=== PATIENT | female | born 1990 | race American Indian/Alaskan Native ===

== ENCOUNTER 2017-01-24 15:07 | Emergency (ER) | payer MEDICAID, OTHER ==
[2017-01-24 15:25] VITALS: BP 103/58
== END 2017-01-24 18:54 | disposition left against medical advice (07) ==
LOC: ED 15:07
DX: O9A.212 Injury, poisoning and certain other consequences of external causes complicating pregnancy, second trimester (principal); S60.571A Other superficial bite of hand of right hand, initial encounter; Z3A.22 22 weeks gestation of pregnancy; Z53.21 Procedure and treatment not carried out due to patient leaving prior to being seen by health care provider; W54.0XXA Bitten by dog, initial encounter; Y93.89 Activity, other specified; Y99.9 Unspecified external cause status; Y92.89 Other specified places as the place of occurrence of the external cause

== ENCOUNTER 2017-04-22 20:59 | Outpatient (CLI) | payer MEDICAID ==
[2017-04-22] MEDS ORDERED: LACTATED RINGERS 1,000 ML ONE (21:14)
[2017-04-22 21:18] VITALS: BP 108/69
[2017-04-22] MEDS ORDERED: ZOFRAN IV ONE (22:00)
[2017-04-22] MEDS ORDERED: LACTATED RINGERS 1,000 ML IV ONE (22:00)
[2017-04-22 22:16] LABS: Bilirubin,Urine NEG (Negative); Blood,Urine NEG (Negative); Ketones,Urine 80 mg/dL (Negative); Leukocyte Esterase,Urine NEG (Negative); Mucus,Urine FEW /HPF; Nitrite,Urine NEG (Negative); Protein,Urine <15 mg/dL mg/dL (Negative); Urobilinogen,Urine < 2.0 mg/dL (<2.0)
[2017-04-22 22:26] LABS: Basophils % (Auto) 0.5 % (0.0-1.8); Hematocrit 33.3 % (30.3-42.9); Hemoglobin 11.2 gm/dl (10.1-14.3); Mean Corpuscular HGB Conc 34 % (30-34); Mean Corpuscular Hemoglobin 31 pg (28-32); Mean Corpuscular Volume 91 fl (79-97); Platelet Count 205 K/mm3 (140-440); Red Blood Count 3.66 M/mm3 (3.65-5.03); White Blood Count 12.8 K/mm3 (4.5-11.0)
[2017-04-22 22:43] LABS: Alanine Aminotransferase 18 units/L (7-56); Albumin 3.4 g/dL (3.9-5); Albumin/Globulin Ratio 1.2 %; Alkaline Phosphatase 138 units/L (35-129); Anion Gap 19 mmol/L; Blood Urea Nitrogen 4 mg/dL (7-17); Calcium 8.7 mg/dL (8.4-10.2); Carbon Dioxide 20 mmol/L (22-30); Chloride 104.6 mmol/L (98-107); Glucose 63 mg/dL (65-100); Potassium 3.8 mmol/L (3.6-5.0); Sodium 140 mmol/L (137-145); Total Protein 6.2 g/dL (6.3-8.2); Uric Acid 3.1 mg/dL (3.5-7.6)
== END 2017-04-22 22:57 | disposition home or self-care (01) ==
LOC: TRG 20:59
PROVIDERS: ATTEND Obstetrics & Gynecology
DX: O47.03 False labor before 37 completed weeks of gestation, third trimester (principal); Z87.891 Personal history of nicotine dependence; Z3A.35 35 weeks gestation of pregnancy
CPT/HCPCS: 36415; 59025; 80053; 81001; 84550; 85025; 96360; 96374; J2405; J7120

== ENCOUNTER 2017-05-09 13:03 | Outpatient (CLI) | payer MEDICAID ==
[2017-05-09 14:36] VITALS: BP 82/49
== END 2017-05-09 14:50 | disposition home or self-care (01) ==
LOC: TRG 13:03
PROVIDERS: ATTEND Obstetrics & Gynecology
DX: O47.1 False labor at or after 37 completed weeks of gestation (principal); Z3A.38 38 weeks gestation of pregnancy

== ENCOUNTER 2017-05-15 06:17 | Outpatient (CLI) | payer MEDICAID ==
[2017-05-15 09:20] VITALS: BP 98/58
[2017-05-15] MEDS ORDERED: VISTARIL PO ONE (10:00)
== END 2017-05-15 09:45 | disposition home or self-care (01) ==
LOC: TRG 06:17
PROVIDERS: ATTEND Obstetrics & Gynecology
DX: O62.9 Abnormality of forces of labor, unspecified (principal); Z87.891 Personal history of nicotine dependence; Z3A.39 39 weeks gestation of pregnancy
CPT/HCPCS: 59025; Q0177